=== PATIENT | female | born 1960 | race African-American/Black ===

== ENCOUNTER 2021-09-03 18:20 | Observation (INO) | payer OTHER ==
[~2021-09-03] VITALS: Ht 172.7 cm; Wt 60.3 kg
[2021-09-03] MEDS ORDERED: HYDROcodone/APAP 5/325 MG 1 TAB TAB PO PRN (21:40)
[2021-09-03] MEDS ORDERED: ONDANSETRON 4 MG/2 ML VIAL IVP PRN (21:40)
[2021-09-03] MEDS ORDERED: MORPHINE SULFATE 4 MG/ML SYR IVP PRN (21:40)
[2021-09-03] MEDS ORDERED: ACETAMINOPHEN 325 MG TAB PO PRN (21:40)
[2021-09-04] MEDS ORDERED: DEXTROSE 50% 50 ML SYR IVP PRN (03:00)
[2021-09-04 04:00] VITALS: BP 179/72
[2021-09-04] MEDS: BLOOD GLUCOSE MONITORING 1 DEV DEV FS SCH ×6 (06:30→22:14)
[2021-09-04 07:11] LABS: ALBUMIN 3.2 g/dL (3.4-5.0); CARBON DIOXIDE 26.1 mmol/L (21-32); MAGNESIUM 2.3 mg/dL (1.8-2.4); PHOSPHORUS 3.5 mg/dL (2.5-4.9); POTASSIUM 4.1 mmol/L (3.5-5.1); TOTAL BILIRUBIN 0.3 mg/dL (0.0-1.0)
[2021-09-04 07:16] LABS: CREATININE 7.9 mg/dL (0.6-1.3)
[2021-09-04 11:35] LABS: BASOPHILS # (AUTO) 0.1 K/uL (0.00-0.22); BASOPHILS % (AUTO) 0.8 % (0.0-2.0); EOSINOPHILS # (AUTO) 0.2 K/uL (0-0.4); EOSINOPHILS % (AUTO) 3.8 % (0.0-4.0); LYMPHOCYTES # (AUTO) 1.5 K/uL (2.5-16.5); LYMPHOCYTES % (AUTO) 22.7 % (20.5-51.1); MEAN CORPUSCULAR HEMOGLOBIN 32 pg (27-31); MEAN CORPUSCULAR HGB CONC 33 g/dL (33-37); MEAN CORPUSCULAR VOLUME 95.6 fL (80-94); MONOCYTES # (AUTO) 0.7 K/uL (0.8-1.0); MONOCYTES % (AUTO) 10.2 % (1.7-9.3); NEUTROPHILS % (AUTO) 62.5 % (42.2-75.2); PLATELET COUNT (AUTO) 211 K/uL (140-450); RED BLOOD CELL COUNT(AUTO) 1.88 MIL/uL (4.20-5.40); RED CELL DISTRIBUTION WIDTH 17.8 % (11.6-13.7); WHITE BLOOD COUNT (AUTO) 6.5 K/uL (4.8-10.8)
[2021-09-04] MEDS: SENNA 8.6 MG TAB PO SCH ×2 (14:00→17:00)
[2021-09-04 16:00] VITALS: BP 181/64
[2021-09-04 20:00] VITALS: BP 177/75
[2021-09-04] MEDS: PANTOPRAZOLE 40 MG TABEC PO SCH (21:30)
[2021-09-04] MEDS: LACTULOSE 20 GM/30 ML UDC PO SCH (21:30)
[2021-09-04] MEDS: INSULIN LISPRO SLIDING SCALE 100 UNITS/ML VIAL SUBQ PRN (22:18)
[2021-09-04] MEDS ORDERED: hydrALAZINE 25 MG TAB PO PRN (22:55)
[2021-09-05] VITALS: BP 170/61
[2021-09-05 04:00] VITALS: BP 147/66
[2021-09-05 05:26] LABS: CREATININE 9.9 mg/dL (0.6-1.3); MAGNESIUM 2.3 mg/dL (1.8-2.4); PHOSPHORUS 4.4 mg/dL (2.5-4.9); POTASSIUM 4.2 mmol/L (3.5-5.1); TOTAL BILIRUBIN 0.3 mg/dL (0.0-1.0)
[2021-09-05 05:29] LABS: ANION GAP 14.2 (8-16)
[2021-09-05] MEDS: BLOOD GLUCOSE MONITORING 1 DEV DEV FS SCH (07:00)
[2021-09-05 08:00] VITALS: BP 150/55
[2021-09-05] MEDS: SENNA 8.6 MG TAB PO SCH ×3 (09:00→17:00)
[2021-09-05] MEDS: PANTOPRAZOLE 40 MG TABEC PO SCH ×2 (09:00→21:48)
[2021-09-05] MEDS ORDERED: EPOETIN ALFA-EPBX 10,000 UNITS/ML VIAL IV SCH (12:00)
[2021-09-05] MEDS: bisacodyL 5 MG TABEC PO SCH ×2 (12:13→18:17)
[2021-09-05] MEDS: SUPREP BOWEL PREP KIT 354 ML SOLN.RECON PO SCH ×2 (12:16→18:17)
[2021-09-05 16:00] VITALS: BP 152/73
[2021-09-05] MEDS: LACTULOSE 20 GM/30 ML UDC PO SCH (21:48)
[2021-09-06 04:00] VITALS: BP 146/65
[2021-09-06] MEDS: INSULIN LISPRO SLIDING SCALE 100 UNITS/ML VIAL SUBQ PRN (06:47)
[2021-09-06] MEDS: BLOOD GLUCOSE MONITORING 1 DEV DEV FS SCH ×2 (06:49→11:30)
[2021-09-06] MEDS ORDERED: diphenhydrAMINE 50 MG/ML VIAL ONE (07:20)
[2021-09-06] MEDS ORDERED: fentaNYL citrate 0.05 MG/ML VIAL ONE (07:21)
[2021-09-06] MEDS ORDERED: MIDAZOLAM 5 MG/5 ML VIAL ONE (07:21)
[2021-09-06] MEDS ORDERED: VIT-B COMP/VIT-C/FOLIC ACID 1 TAB PO SCH (09:00)
[2021-09-06] MEDS ORDERED: MIDAZOLAM 2 MG/2 ML VIAL IVP ONE (09:15)
[2021-09-06] MEDS ORDERED: fentaNYL citrate 0.05 MG/ML VIAL IVP ONE (09:15)
[2021-09-06] MEDS ORDERED: fentaNYL citrate 0.05 MG/ML VIAL IVP SCH (09:23)
[2021-09-06] MEDS: PANTOPRAZOLE 40 MG TABEC PO SCH (10:50)
[2021-09-06] MEDS: LACTULOSE 20 GM/30 ML UDC PO SCH (10:50)
[2021-09-06] MEDS: SENNA 8.6 MG TAB PO SCH ×2 (10:51→13:00)
[2021-09-06] MEDS ORDERED: SIMETHICONE 40 MG/0.6 ML ONE (11:13)
[2021-09-06 12:00] VITALS: BP 175/80
[2021-09-06] MEDS ORDERED: LACT10SO11 PO (14:45)
[2021-09-06] MEDS ORDERED: AMLO-3 PO (14:45)
[2021-09-06] MEDS ORDERED: PANT40EC56 PO (14:45)
[2021-09-06 14:55] LABS: ANION GAP 15.2 (8-16); CARBON DIOXIDE 28.7 mmol/L (21-32); POTASSIUM 3.9 mmol/L (3.5-5.1)
[2021-09-06 14:59] LABS: ALBUMIN 3.1 g/dL (3.4-5.0); ANION GAP 14.2 (8-16); CARBON DIOXIDE 28.7 mmol/L (21-32); CREATININE 8.1 mg/dL (0.6-1.3); MAGNESIUM 2.7 mg/dL (1.8-2.4); PHOSPHORUS 3.6 mg/dL (2.5-4.9); POTASSIUM 3.9 mmol/L (3.5-5.1); TOTAL BILIRUBIN 0.4 mg/dL (0.0-1.0)
[2021-09-06 15:00] LABS: CREATININE 8.2 mg/dL (0.6-1.3)
[2021-09-06 15:42] VITALS: BP 181/74
[2021-09-06] MEDS ORDERED: HALOPERIDOL 5 MG TAB PO PRN (15:50)
[2021-09-07] MEDS ORDERED: amLODIPine 5 MG TAB PO SCH (09:00)
[2021-09-08] MEDS ORDERED: EPOETIN ALFA-EPBX 10,000 UNITS/ML VIAL IV SCH (09:00)
== END 2021-09-06 16:53 | disposition home or self-care (01) ==
LOC: UNDOADMIN 18:20 → MTU 18:20 → INTOOBSV 18:20 → MTU 09-04 02:49
PROVIDERS: ADMIT Hospitalist; ATTEND Hospitalist
DX: K72.90 Hepatic failure, unspecified without coma (principal); K70.30 Alcoholic cirrhosis of liver without ascites; K29.70 Gastritis, unspecified, without bleeding; K29.80 Duodenitis without bleeding; K92.1 Melena; G93.41 Metabolic encephalopathy; I13.2 Hypertensive heart and chronic kidney disease with heart failure and with stage 5 chronic kidney disease, or end stage renal disease; E11.22 Type 2 diabetes mellitus with diabetic chronic kidney disease; N18.6 End stage renal disease; I50.9 Heart failure, unspecified; D63.1 Anemia in chronic kidney disease; F91.9 Conduct disorder, unspecified; Z99.2 Dependence on renal dialysis; Z79.899 Other long term (current) drug therapy
CPT/HCPCS: 36415; 43239; 45378; 71045; 80053; 82948; 83735; 84100; 85025; 86677; 86886; 86900; 86901; 86920; 87081; 96372; 96374; G0378; J1815; J2250; J3010; J7030; P9016; Q5106; 80048; J1200